=== PATIENT | male | born 1985 | race Caucasian/White ===

== ENCOUNTER 2017-05-18 09:20 | Outpatient (CLI) | payer OTHER ==
--- NOTE | 2017-05-18 14:31 | Diagnostic Imaging Report ---
ARTURO CASTILLO [facility] [id number] [facility] [address] [id number] Report Submission Date: May 18, 2017 9:48:44 AM CDT Patient Study Name: ROSA THOMSON Date: May 18, 2017 9:21:47 AM CDT Modality Type: CR Gender: M Description: UPPER EXTREMITY : 81 Institution: [facility] Physician: ARTURO CASTILLO AP and lateral views of both elbows History: PATIENT STATES HIT ELBOW ON ELECTRICAL OUTLET ON 05/06/17. PAIN IN LEFT ELBOW No similar comparison studies No evidence of acute fracture or dislocation of the both elbows. Joint spaces are preserved Mild degenerative changes are noted in the right proximal ulna Impression: No evidence of acute fracture or dislocation both elbows Electronically signed on May 18, 2017 9:48:44 AM CDT by: Lazara WHITMORE
== END 2017-05-18 09:21 ==
LOC: RAD 09:20
PROVIDERS: ATTEND Physician Assistant
DX: M25.522 Pain in left elbow (principal)